=== PATIENT | female | born 1955 | race Caucasian/White ===

== ENCOUNTER 2024-02-19 19:36 | Emergency (ER) | payer MEDICARE, SELFPAY ==
[2024-02-19 19:35] VITALS: PULSE 125; RESP 26; TEMP 37.1; O2SAT 96
[2024-02-19] MEDS: LORazepam 2 MG/ML INJ IM (19:51)
[2024-02-19] MEDS: HALOPERIDOL 5 MG/ML VIAL IM (19:51)
--- NOTE | 2024-02-19 20:15 | ED_ITS ---
HPI - Psych <Anders Kauffman DO - Last Filed: 02/20/24 18:03> General Chief Complaint: Psychiatric Symptoms Stated Complaint: manic Time Seen by Provider: 02/19/24 19:43 Source: EMS and other Mode of arrival: EMS Limitations: other (Manic) History of Present Illness HPI Narrative: Patient is a 68-year-old female. She was unable to provide any HPI for review of systems. EMS was called after the patient showed up to a friend's house. The friend was in the one who contacted 911. Is reported by EMS that they were told by the patient's friend that she showed up to his house in a manic state. Supported that she has a history of bipolar. Potentially has been off of her medicines for some time. Patient came to the emergency department with EMS on her own. Upon arrival the patient does appear to be suspicious. She was hyperverbal. Is tangential. Is not making any sense. Would not directly answer any questions. Related Data Allergies Allergy/AdvReac Type Severity Reaction Status Date / Time codeine AdvReac Vomiting Verified 02/19/24 20:16 morphine AdvReac Vomiting Verified 02/19/24 20:16 Review of Systems <Anders Kauffman DO - Last Filed: 02/20/24 18:03> Review of Systems ROS Unobtainable: Unobtainable due to mental condition Exam <Anders Kauffman DO - Last Filed: 02/20/24 18:03> Initial Vital Signs Initial Vital Signs: Vital Signs Temperature 98.7 F 02/19/24 19:35 Pulse Rate 125 H 02/19/24 19:35 Respiratory Rate 26 H 02/19/24 19:35 Pulse Oximetry 96 02/19/24 19:35 Oxygen Delivery Method Room Air 02/19/24 19:35 Const General: disheveled HENMT Head: normal to inspection and normocephalic Resp Effort & Inspection: normal respiratory effort Cardio Rate: regular rate Extrem Other: No gross deformities Psych Other: Patient is obviously responding to internal stimuli. Hyperverbal, is very animated. Has not been aggressive. Appears to be paranoid/anxious. <Michelle Daily, DO - Last Filed: 02/21/24 07:29> Initial Vital Signs Initial Vital Signs: Vital Signs Temperature 98.7 F 02/19/24 19:35 Pulse Rate 125 H 02/19/24 19:35 Respiratory Rate 26 H 02/19/24 19:35 Pulse Oximetry 96 02/19/24 19:35 Oxygen Delivery Method Room Air 02/19/24 19:35 Course <Anders Kauffman DO - Last Filed: 02/20/24 18:03> Orders Ordered: Discontinued Medications Famotidine (Famotidine 20 Mg Tablet) 20 mg PO NOW ONE Stop: 02/20/24 07:38 Last Admin: 02/20/24 08:00 Dose: 20 mg Documented By: TJ Haloperidol (Haloperidol 5 Mg/Ml Vial) 5 mg IM NOW ONE Stop: 02/19/24 19:44 Last Admin: 02/19/24 19:51 Dose: 5 mg Documented By: KENNY Lorazepam (Lorazepam 2 Mg/Ml Inj) 2 mg IM NOW ONE Stop: 02/19/24 19:44 Last Admin: 02/19/24 19:51 Dose: 2 mg Documented By: KENNY Olanzapine (Olanzapine Odt 10 Mg Tab) 10 mg PO NOW ONE Stop: 02/19/24 19:38 Last Admin: 02/19/24 20:21 Dose: Not Given Documented By: KENNY Olanzapine (Olanzapine Odt 10 Mg Tab) 10 mg PO NOW ONE Stop: 02/20/24 11:31 Last Admin: 02/20/24 16:09 Dose: Not Given Documented By: ALVARO Vital Signs Vital signs: Vital Signs - 8 hr 02/20/24 11:30 02/20/24 13:30 02/20/24 15:25 Temperature 98.8 F 99.2 F 97.7 F Pulse Rate 88 91 H 89 Respiratory Rate 18 18 18 Blood Pressure 131/64 148/79 H 120/57 L Pulse Oximetry 96 97 96 Oxygen Delivery Method Room Air Room Air Room Air <Michelle Daily DO - Last Filed: 02/21/24 07:29> Orders Ordered: Discontinued Medications Famotidine (Famotidine 20 Mg Tablet) 20 mg PO NOW ONE Stop: 02/20/24 07:38 Last Admin: 02/20/24 08:00 Dose: 20 mg Documented By: TJ Haloperidol (Haloperidol 5 Mg/Ml Vial) 5 mg IM NOW ONE Stop: 02/19/24 19:44 Last Admin: 02/19/24 19:51 Dose: 5 mg Documented By: KENNY Lorazepam (Lorazepam 2 Mg/Ml Inj) 2 mg IM NOW ONE Stop: 02/19/24 19:44 Last Admin: 02/19/24 19:51 Dose: 2 mg Documented By: KENNY Olanzapine (Olanzapine Odt 10 Mg Tab) 10 mg PO NOW ONE Stop: 02/19/24 19:38 Last Admin: 02/19/24 20:21 Dose: Not Given Documented By: HNG Olanzapine (Olanzapine Odt 10 Mg Tab) 10 mg PO NOW ONE Stop: 02/20/24 11:31 Last Admin: 02/20/24 16:09 Dose: Not Given Documented By: ALVARO Vital Signs Vital signs: Vital Signs - 8 hr 02/20/24 11:30 02/20/24 13:30 02/20/24 15:25 Temperature 98.8 F 99.2 F 97.7 F Pulse Rate 88 91 H 89 Respiratory Rate 18 18 18 Blood Pressure 131/64 148/79 H 120/57 L Pulse Oximetry 96 97 96 Oxygen Delivery Method Room Air Room Air Room Air MDM - Psych <Anders Kauffman DO - Last Filed: 02/20/24 18:03> Medical Records Attestation: I reviewed the patient's medical records. Lab Data Attestation: I reviewed the patient's lab results. 02/19/24 21:25 02/19/24 21:25 Labs: Lab Results 02/19/24 02/19/24 02/19/24 Range/Units 20:37 20:37 20:55 WBC (4.5-11.0) X10^3/uL RBC (4.0-5.2) X10^6/uL Hgb (12.0-16.0) g/dL Hct (36-46) % MCV (80-100) fL MCH (26-34) PG MCHC (30-36) % RDW (11.6-14.8) % Plt Count (150-400) X10^3/uL Neut % (Auto) (50-75) % Lymph % (Auto) (25-40) % [place] % (Auto) (3-14) % Eos % (Auto) (2-4) % Baso % (Auto) (0-2) % Neut # (Auto) (0298-6233) /uL Lymph # (Auto) (4404-5865) /uL [place] # (Auto) (0-900) /uL Eos # (Auto) (0-450) /uL Baso # (Auto) (0-100) /uL Sodium (137-145) mmol/L Potassium (3.4-5.1) mmol/L Chloride (98-107) mmol/L Carbon Dioxide (22-32) mmol/L BUN (7-17) mg/dL Creatinine (0.52-1.04) mg/dL Estimated GFR (>60) mL/min BUN/Creatinine Ratio (6-22) Glucose (80-110) mg/dL Calcium (8.4-10.2) mg/dL Magnesium (1.6-2.3) mg/dL Total Bilirubin (0.2-1.3) mg/dL AST (14-36) IU/L ALT (<35) IU/L Alkaline Phosphatase (38-126) U/L Total Creatine Kinase (30-135) U/L Troponin I (0.01-0.034) ng/mL Total Protein (6.3-8.2) g/dL Albumin (3.5-5.0) g/dL Globulin (1.7-4.1) g/dL Albumin/Globulin Ratio (1.0-2.8) Lipase (23-300) U/L TSH (0.47-4.68) uIU/mL Urine Color Yellow Urine Appearance Clear Urine pH 5.5 Normal (4.5-8.0) Ur Specific [place] 1.020 (1.000-1.035) Urine Protein 1+ H (Negative) Urine Glucose (UA) Negative (Negative) g/dL Urine Ketones Trace H (NEGATIVE) Urine Occult Blood 2+ H (Negative) Urine Nitrate Negative (Negative) Urine Bilirubin 1+ H (NEGATIVE) Ur Bilirubin Confirm Negative (Negative) Urine Urobilinogen 1.0 (0.2) E.U./dL Ur Leukocyte Esterase Negative (NEGATIVE) Urine RBC 1-5/hpf (0-5/HPF) Urine WBC 0-1/hpf (0-5/HPF) Ur Squamous Epith Cells 1-5 /hpf (0-5/HPF) Amorphous Sediment 1+ Urine Bacteria Few (2-10) H (None) Hyaline Casts 1-5/lpf (None) Ur Culture Indicated? Cult not indicated Vol Urine Centrifuged 10ml (spun) Salicylates (<20) mg/dL U Opiates 300ng/mL cut Negative (Negative) Ur Oxycodone Screen Negative (Negative) Urine Methadone Screen Negative (Negative) Acetaminophen (10-30) ug/mL Ur Barbiturates Screen Negative (Negative) U Tricyclic Antidepress Negative (Negative) Ur Phencyclidine Scrn Negative (Negative) Ur Amphetamines Screen Negative (Negative) U Methamphetamines Scrn Negative (Negative) Ur MDMA Scrn (Ecstasy) Negative (Negative) U Benzodiazepines Scrn Positive H (Negative) Urine Cocaine Screen Negative (Negative) U Marijuana (THC) Screen Negative (Negative) Urine Specific [place] Normal (Normal) Ethyl Alcohol ( - 10) mg/dL Ur Creatinine Normal (Normal) SARS-CoV-2 (PCR) Negative (Negative) Influenza A (RT-PCR) Flu a negative (NEGATIVE) Influenza B (RT-PCR) Flu b negative (NEGATIVE) RSV (PCR) Negative (Negative) 02/19/24 Range/Units 21:25 WBC 8.5 (4.5-11.0) X10^3/uL RBC 4.00 (4.0-5.2) X10^6/uL Hgb 12.7 (12.0-16.0) g/dL Hct 37.1 (36-46) % MCV 92.7 (80-100) fL MCH 31.8 (26-34) PG MCHC 34.3 (30-36) % RDW 13.3 (11.6-14.8) % Plt Count 235 (150-400) X10^3/uL Neut % (Auto) 61.3 (50-75) % Lymph % (Auto) 30.5 (25-40) % [place] % (Auto) 7.5 (3-14) % Eos % (Auto) 0.3 L (2-4) % Baso % (Auto) 0.4 (0-2) % Neut # (Auto) 5200 (9961-3074) /uL Lymph # (Auto) 2600 (8105-9650) /uL [place] # (Auto) 600 (0-900) /uL Eos # (Auto) 0 (0-450) /uL Baso # (Auto) 0 (0-100) /uL Sodium 138 (137-145) mmol/L Potassium 3.3 L (3.4-5.1) mmol/L Chloride 105 (98-107) mmol/L Carbon Dioxide 22 (22-32) mmol/L BUN 22 H (7-17) mg/dL Creatinine 1.03 (0.52-1.04) mg/dL Estimated GFR 59 L (>60) mL/min BUN/Creatinine Ratio 21.4 (6-22) Glucose 119 H (80-110) mg/dL Calcium 9.1 (8.4-10.2) mg/dL Magnesium 2.4 H (1.6-2.3) mg/dL Total Bilirubin 0.8 (0.2-1.3) mg/dL AST 29 (14-36) IU/L ALT 21 (<35) IU/L Alkaline Phosphatase 55 (38-126) U/L Total Creatine Kinase 181 H (30-135) U/L Troponin I 0.013 (0.01-0.034) ng/mL Total Protein 6.8 (6.3-8.2) g/dL Albumin 4.0 (3.5-5.0) g/dL Globulin 2.8 (1.7-4.1) g/dL Albumin/Globulin Ratio 1.4 (1.0-2.8) Lipase 105 (23-300) U/L TSH 0.754 (0.47-4.68) uIU/mL Urine Color Urine Appearance Urine pH (4.5-8.0) Ur Specific [place] (1.000-1.035) Urine Protein (Negative) Urine Glucose (UA) (Negative) g/dL Urine Ketones (NEGATIVE) Urine Occult Blood (Negative) Urine Nitrate (Negative) Urine Bilirubin (NEGATIVE) Ur Bilirubin Confirm (Negative) Urine Urobilinogen (0.2) E.U./dL Ur Leukocyte Esterase (NEGATIVE) Urine RBC (0-5/HPF) Urine WBC (0-5/HPF) Ur Squamous Epith Cells (0-5/HPF) Amorphous Sediment Urine Bacteria (None) Hyaline Casts (None) Ur Culture Indicated? Vol Urine Centrifuged Salicylates < 1.0 (<20) mg/dL U Opiates 300ng/mL cut (Negative) Ur Oxycodone Screen (Negative) Urine Methadone Screen (Negative) Acetaminophen < 10 (10-30) ug/mL Ur Barbiturates Screen (Negative) U Tricyclic Antidepress (Negative) Ur Phencyclidine Scrn (Negative) Ur Amphetamines Screen (Negative) U Methamphetamines Scrn (Negative) Ur MDMA Scrn (Ecstasy) (Negative) U Benzodiazepines Scrn (Negative) Urine Cocaine Screen (Negative) U Marijuana (THC) Screen (Negative) Urine Specific [place] (Normal) Ethyl Alcohol < 10 ( - 10) mg/dL Ur Creatinine (Normal) SARS-CoV-2 (PCR) (Negative) Influenza A (RT-PCR) (NEGATIVE) Influenza B (RT-PCR) (NEGATIVE) RSV (PCR) (Negative) MDM Narrative Medical decision making narrative: In order to treat the patient's obvious paranoia/anxiety she was given an IM dose of Haldol and Ativan. After a short period of time patient became much less animated. She did sleep on her own. Labs are relatively unremarkable. She was positive for benzodiazepine. Her urine sample was given after she was given a dose of Ativan here in the emergency department. I was able to obtain records from [facility]. She was seen on August 03, 2023 at [facility]. According to that note she has a history of hypertension/hyperlipidemia/depression, anxiety, PTSD and psychosis. That that time she was presented by law enforcement under 90 a for what appears to be very similar symptoms that she presents with today. She was evaluated by the DCR and from what I can gather from the note was in voluntarily admitted for grave disability. Plan will be is to observe the patient here in the emergency department until she wakes in the morning for re-evaluation to see if her psychosis has improved. 0600 Dr kauffman: Patient has been sleeping overnight. This morning waking up patient is definitely not as agitated/excited as she was last evening however is still experiencing yaa. I do not feel that the patient has capacity to make decisions. I do feel patient he was gravely disabled. We will make contact with DCR to evaluate <Michelle Daily, DO - Last Filed: 02/21/24 07:29> Lab Data Labs: Lab Results 02/19/24 02/19/24 02/19/24 Range/Units 20:37 20:37 20:55 WBC (4.5-11.0) X10^3/uL RBC (4.0-5.2) X10^6/uL Hgb (12.0-16.0) g/dL Hct (36-46) % MCV (80-100) fL MCH (26-34) PG MCHC (30-36) % RDW (11.6-14.8) % Plt Count (150-400) X10^3/uL Neut % (Auto) (50-75) % Lymph % (Auto) (25-40) % [place] % (Auto) (3-14) % Eos % (Auto) (2-4) % Baso % (Auto) (0-2) % Neut # (Auto) (2619-5660) /uL Lymph # (Auto) (6942-5836) /uL [place] # (Auto) (0-900) /uL Eos # (Auto) (0-450) /uL Baso # (Auto) (0-100) /uL Sodium (137-145) mmol/L Potassium (3.4-5.1) mmol/L Chloride (98-107) mmol/L Carbon Dioxide (22-32) mmol/L BUN (7-17) mg/dL Creatinine (0.52-1.04) mg/dL Estimated GFR (>60) mL/min BUN/Creatinine Ratio (6-22) Glucose (80-110) mg/dL Calcium (8.4-10.2) mg/dL Magnesium (1.6-2.3) mg/dL Total Bilirubin (0.2-1.3) mg/dL AST (14-36) IU/L ALT (<35) IU/L Alkaline Phosphatase (38-126) U/L Total Creatine Kinase (30-135) U/L Troponin I (0.01-0.034) ng/mL Total Protein (6.3-8.2) g/dL Albumin (3.5-5.0) g/dL Globulin (1.7-4.1) g/dL Albumin/Globulin Ratio (1.0-2.8) Lipase (23-300) U/L TSH (0.47-4.68) uIU/mL Urine Color Yellow Urine Appearance Clear Urine pH 5.5 Normal (4.5-8.0) Ur Specific [place] 1.020 (1.000-1.035) Urine Protein 1+ H (Negative) Urine Glucose (UA) Negative (Negative) g/dL Urine Ketones Trace H (NEGATIVE) Urine Occult Blood 2+ H (Negative) Urine Nitrate Negative (Negative) Urine Bilirubin 1+ H (NEGATIVE) Ur Bilirubin Confirm Negative (Negative) Urine Urobilinogen 1.0 (0.2) E.U./dL Ur Leukocyte Esterase Negative (NEGATIVE) Urine RBC 1-5/hpf (0-5/HPF) Urine WBC 0-1/hpf (0-5/HPF) Ur Squamous Epith Cells 1-5 /hpf (0-5/HPF) Amorphous Sediment 1+ Urine Bacteria Few (2-10) H (None) Hyaline Casts 1-5/lpf (None) Ur Culture Indicated? Cult not indicated Vol Urine Centrifuged 10ml (spun) Salicylates (<20) mg/dL U Opiates 300ng/mL cut Negative (Negative) Ur Oxycodone Screen Negative (Negative) Urine Methadone Screen Negative (Negative) Acetaminophen (10-30) ug/mL Ur Barbiturates Screen Negative (Negative) U Tricyclic Antidepress Negative (Negative) Ur Phencyclidine Scrn Negative (Negative) Ur Amphetamines Screen Negative (Negative) U Methamphetamines Scrn Negative (Negative) Ur MDMA Scrn (Ecstasy) Negative (Negative) U Benzodiazepines Scrn Positive H (Negative) Urine Cocaine Screen Negative (Negative) U Marijuana (THC) Screen Negative (Negative) Urine Specific [place] Normal (Normal) Ethyl Alcohol ( - 10) mg/dL Ur Creatinine Normal (Normal) SARS-CoV-2 (PCR) Negative (Negative) Influenza A (RT-PCR) Flu a negative (NEGATIVE) Influenza B (RT-PCR) Flu b negative (NEGATIVE) RSV (PCR) Negative (Negative) 02/19/24 Range/Units 21:25 WBC 8.5 (4.5-11.0) X10^3/uL RBC 4.00 (4.0-5.2) X10^6/uL Hgb 12.7 (12.0-16.0) g/dL Hct 37.1 (36-46) % MCV 92.7 (80-100) fL MCH 31.8 (26-34) PG MCHC 34.3 (30-36) % RDW 13.3 (11.6-14.8) % Plt Count 235 (150-400) X10^3/uL Neut % (Auto) 61.3 (50-75) % Lymph % (Auto) 30.5 (25-40) % [place] % (Auto) 7.5 (3-14) % Eos % (Auto) 0.3 L (2-4) % Baso % (Auto) 0.4 (0-2) % Neut # (Auto) 5200 (1188-1979) /uL Lymph # (Auto) 2600 (1246-5656) /uL [place] # (Auto) 600 (0-900) /uL Eos # (Auto) 0 (0-450) /uL Baso # (Auto) 0 (0-100) /uL Sodium 138 (137-145) mmol/L Potassium 3.3 L (3.4-5.1) mmol/L Chloride 105 (98-107) mmol/L Carbon Dioxide 22 (22-32) mmol/L BUN 22 H (7-17) mg/dL Creatinine 1.03 (0.52-1.04) mg/dL Estimated GFR 59 L (>60) mL/min BUN/Creatinine Ratio 21.4 (6-22) Glucose 119 H (80-110) mg/dL Calcium 9.1 (8.4-10.2) mg/dL Magnesium 2.4 H (1.6-2.3) mg/dL Total Bilirubin 0.8 (0.2-1.3) mg/dL AST 29 (14-36) IU/L ALT 21 (<35) IU/L Alkaline Phosphatase 55 (38-126) U/L Total Creatine Kinase 181 H (30-135) U/L Troponin I 0.013 (0.01-0.034) ng/mL Total Protein 6.8 (6.3-8.2) g/dL Albumin 4.0 (3.5-5.0) g/dL Globulin 2.8 (1.7-4.1) g/dL Albumin/Globulin Ratio 1.4 (1.0-2.8) Lipase 105 (23-300) U/L TSH 0.754 (0.47-4.68) uIU/mL Urine Color Urine Appearance Urine pH (4.5-8.0) Ur Specific [place] (1.000-1.035) Urine Protein (Negative) Urine Glucose (UA) (Negative) g/dL Urine Ketones (NEGATIVE) Urine Occult Blood (Negative) Urine Nitrate (Negative) Urine Bilirubin (NEGATIVE) Ur Bilirubin Confirm (Negative) Urine Urobilinogen (0.2) E.U./dL Ur Leukocyte Esterase (NEGATIVE) Urine RBC (0-5/HPF) Urine WBC (0-5/HPF) Ur Squamous Epith Cells (0-5/HPF) Amorphous Sediment Urine Bacteria (None) Hyaline Casts (None) Ur Culture Indicated? Vol Urine Centrifuged Salicylates < 1.0 (<20) mg/dL U Opiates 300ng/mL cut (Negative) Ur Oxycodone Screen (Negative) Urine Methadone Screen (Negative) Acetaminophen < 10 (10-30) ug/mL Ur Barbiturates Screen (Negative) U Tricyclic Antidepress (Negative) Ur Phencyclidine Scrn (Negative) Ur Amphetamines Screen (Negative) U Methamphetamines Scrn (Negative) Ur MDMA Scrn (Ecstasy) (Negative) U Benzodiazepines Scrn (Negative) Urine Cocaine Screen (Negative) U Marijuana (THC) Screen (Negative) Urine Specific [place] (Normal) Ethyl Alcohol < 10 ( - 10) mg/dL Ur Creatinine (Normal) SARS-CoV-2 (PCR) (Negative) Influenza A (RT-PCR) (NEGATIVE) Influenza B (RT-PCR) (NEGATIVE) RSV (PCR) (Negative) MDM Narrative Medical decision making narrative: In order to treat the patient's obvious paranoia/anxiety she was given an IM dose of Haldol and Ativan. After a short period of time patient became much less animated. She did sleep on her own. Labs are relatively unremarkable. She was positive for benzodiazepine. Her urine sample was given after she was given a dose of Ativan here in the emergency department. I was able to obtain records from [facility]. She was seen on August 03, 2023 at [facility]. According to that note she has a history of hypertension/hyperlipidemia/depression, anxiety, PTSD and psychosis. That that time she was presented by law enforcement under 90 a for what appears to be very similar symptoms that she presents with today. She was evaluated by the DCR and from what I can gather from the note was in voluntarily admitted for grave disability. Plan will be is to observe the patient here in the emergency department until she wakes in the morning for re-evaluation to see if her psychosis has improved. 0600 Dr kauffman: Patient has been sleeping overnight. This morning waking up patient is definitely not as agitated/excited as she was last evening however is still experiencing yaa. I do not feel that the patient has capacity to make decisions. I do feel patient he was gravely disabled. We will make contact with DCR to evaluate [id number] Daily-patient seen evaluated by myself. She received Haldol and Ativan last night. She reports that she is feeling much more ?stable.I asked her how she got here last night she reports that she has been working [employer] for the last 39 years. She is very tangential in her communication. She reports she is noncompliant with her medication accepts for famotidine. She is extremely poor insight DCR at bedside she actually detained patient. They did require an EKG which does not show any sort of ischemia or prolonged QT or arrhythmia. Patient actually took the news of detainment and going to [facility] quite well she apparently remembers that place and has found memory Discharge Plan Departure Patient Disposition: Xfer Psychiatric Hosp Clinical Impression: Yaa
--- NOTE | 2024-02-19 20:17 | EKG_ITS ---
[address] [address] Test Date: 2024-02-20 Pat Name: Koki Isaacs Department: [facility] Room: Gender: Female Enterprise Sales Person: AMARIS : 1955 Requested By: Order Number: [id number] Reading MD: Piotr Celestin Measurements Intervals [place] Rate: 89 P: 17 NC: 136 QRS: 15 QRSD: 78 T: 23 QT: 384 QTc: 467 Interpretive Statements Normal sinus rhythm Electronically Signed On 02-24-2024 9:14:58 PDT by Piotr Celestin
--- NOTE | 2024-02-19 20:47 | PC.NURSE ---
Pt came in via EMS, she is manic and unable to concentrate on task in front. Continues to be manic and thought process is not understandable. However, she does known her name, and where she is, but other than that she continues to speak in past terms as if they are present.
[2024-02-19 20:52] LABS: Appearance Urine UA CLEAR; Bilirubin Urine UA 1+ (NEGATIVE); Color Urine UA YELLOW; Glucose Urine UA NEGATIVE (Negative); Ketones Urine UA TRACE (NEGATIVE); Leukocyte Esterase Urine UA NEGATIVE (NEGATIVE); Nitrite Urine UA NEGATIVE (Negative); Occult Blood Urine UA 2+ (Negative); Protein Urine UA 1+ (Negative)
[2024-02-19 20:53] LABS: pH Urine UA 5.5 (4.5-8.0)
[2024-02-19 20:56] LABS: UR Morphine/Opiate cutoff 300 Negative (Negative); Ur Creatinine Normal (Normal); Ur Specific Gravity Normal (Normal); Urine Amphetamines Negative (Negative); Urine Barbiturates Negative (Negative); Urine Benzodiazepines Positive (Negative); Urine Cocaine Negative (Negative); Urine MDMA Negative (Negative); Urine Methadone Negative (Negative); Urine Methamphetamines Negative (Negative); Urine Oxycodone Negative (Negative); Urine Phencyclidine Negative (Negative); Urine Tetrahydrocannabinol Negative (Negative); Urine Tricyclic Antidepressant Negative (Negative); Urine pH Normal (Normal)
[2024-02-19 21:02] VITALS: BP 109/54
[2024-02-19 21:06] LABS: Ictotest Urine Negative (Negative); Urine Volume 10mL (spun)
[2024-02-19 21:07] LABS: Amorphous Sediment Urine 1+; Bacteria Urine Few (2-10); Culture Indicated Urine Cult Not Indicated; Hyaline Casts Urine 1-5/LPF; RBC Urine 1-5/HPF (0-5/HPF); Squamous Epithelial Cell Urine 1-5 /HPF (0-5/HPF); WBC Urine 0-1/HPF (0-5/HPF)
[2024-02-19 21:36] LABS: Add Manual Diff / Slide Review NO; Basophils Absolute Auto 0 /uL (0-100); Basophils Percent Auto 0.4 % (0-2); Eosinophils Absolute Auto 0 /uL (0-450); Eosinophils Percent Auto 0.3 % (2-4); Hematocrit 37.1 % (36-46); Hemoglobin 12.7 g/dL (12.0-16.0); Lymphocytes Absolute Auto 2600 /uL (1100-4500); Lymphocytes Percent Auto 30.5 % (25-40); Mean Corpuscular HGB Conc 34.3 % (30-36); Mean Corpuscular Hemoglobin 31.8 PG (26-34); Mean Corpuscular Volume 92.7 fL (80-100); Monocytes Absolute Auto 600 /uL (0-900); Monocytes Percent Auto 7.5 % (3-14); Neutrophils Absolute Auto 5200 /uL (1500-7000); Neutrophils Percent Auto 61.3 % (50-75); Platelet Count 235 X10^3/uL (150-400); Red Cell Distribution Width 13.3 % (11.6-14.8); White Blood Cell Count 8.5 X10^3/uL (4.5-11.0)
[2024-02-19 21:49] LABS: Acetaminophen < 10 ug/mL (10-30); Alanine Aminotransferase 21 IU/L (<35); Albumin Globulin Ratio 1.4 (1.0-2.8); Alkaline Phosphatase 55 U/L (38-126); Aspartate Aminotransferase 29 IU/L (14-36); BUN Creatinine Ratio 21.4 (6-22); Bilirubin Total 0.8 mg/dL (0.2-1.3); Blood Urea Nitrogen 22 mg/dL (7-17); Calcium 9.1 mg/dL (8.4-10.2); Carbon Dioxide 22 mmol/L (22-32); Chloride 105 mmol/L (98-107); Creatine Kinase 181 U/L (30-135); Estimated Glomerular Filt Rate 59 mL/min (>60); Ethanol (ETOH) < 10 mg/dL; Globulin 2.8 g/dL (1.7-4.1); Glucose 119 mg/dL (80-110); HEMOLYSIS < 15 (0-50); Lipase 105 U/L (23-300); Magnesium 2.4 mg/dL (1.6-2.3); Potassium 3.3 mmol/L (3.4-5.1); Salicylate < 1.0 mg/dL (<20); Sodium 138 mmol/L (137-145); Total Protein 6.8 g/dL (6.3-8.2)
[2024-02-19 22:01] LABS: Troponin I 0.013 ng/mL (0.01-0.034)
[2024-02-19 22:21] LABS: Thyroid Stimulating Hormone 0.754 uIU/mL (0.47-4.68)
[2024-02-19 23:36] LABS: COVID-19 CEPHEID 4-PLEX PCR Negative (Negative); Influenza A - CEPHEID Flu A NEGATIVE (NEGATIVE); Influenza B - CEPHEID Flu B NEGATIVE (NEGATIVE); Respiratory Syncytial Virus Negative (Negative)
[2024-02-20 01:18] VITALS: BP 107/59; PULSE 72; RESP 16; TEMP 36.5; O2SAT 94
--- NOTE | 2024-02-20 03:31 | PC.NURSE ---
Addendum entered by Evelia Romero CNA 02/20/24 06:30: MARTINEZ note: Patient asked if she could wash her face. Got patient a wet washcloth with warm water, patient washed her face and then laid back down. I asked her if she wanted her lights turned off. Patient replied with that would be nice. Patient requests another cup of coffee. Original Note: ROLLER INSPECTOR note: Patient woke up asking about water and a snack. Got patient a cup of ice water and a granola bar. Patient asked when is breakfast served. I said at about 0800. Patient asked what time it is, 0330. Patient stated she was going to go back to sleep. Patient took 2 bites of granola bar and now has her eyes closed in bed.
--- NOTE | 2024-02-20 04:15 | PC.NURSE ---
Pt has woken up intermittently for snacks, and water.
--- NOTE | 2024-02-20 07:09 | PC.NURSE ---
TELEVISION REPAIRMAN: patient requested a hairbrush and chapstick, I checked with patients gizzard skin remover nurse to see if she thinks that would be okay to provide. The items were given to the patient.
--- NOTE | 2024-02-20 07:30 | PC.NURSE ---
BULLET ASSEMBLY PRESS OPERATOR Note: patient requested two cups of coffee to help her have a bowel movement this morning. Coffee was provided and bathroom is unlocked for patient to use at her discretion.
--- NOTE | 2024-02-20 07:40 | PC.NURSE ---
Guillermina LANDA called requesting information on patient. Fax sent. At request of DCR patient asked if agreeable to voluntary hospitalization for mental health. No i am not worried about my mental health, I am worried about my physical health. I am just here to cool off DCR reviewing chart
[2024-02-20] MEDS: FAMOTIDINE 20 MG TABLET PO (08:00)
[2024-02-20 08:07] VITALS: BP 144/75; PULSE 93; RESP 18; TEMP 37.1; O2SAT 95
--- NOTE | 2024-02-20 10:04 | PC.NURSE ---
[employer] PRINCIPAL note: Patient asked me to step into room to tell me something personal. The patient stated that her unofficial is Noah Ayon and that he is her civil litigation attorney to protect her and all the other vulnerable adults in [facility] from medicare. Patient asked if I could call him and tell him that Koki is here. I told the patient that I do not have his phone number and she was unable to provide a number for me to call. Patient stated I feel better just with you knowing that he is my . Patient started to speak in unorganized sentences and walked away mid conversation to the bathroom.
--- NOTE | 2024-02-20 10:45 | PC.NURSE ---
DCR in room with patient
[2024-02-20 11:30] VITALS: BP 131/64; PULSE 88; RESP 18; TEMP 37.1; O2SAT 96
--- NOTE | 2024-02-20 11:32 | PC.NURSE ---
The patient was given the news by DCR that she was going to be going to a facility to get treatment and the patient was displaying a positive attitude towards the news. She reacted by giving the DCR a hug and thanking her.
[2024-02-20 13:30] VITALS: BP 148/79; PULSE 91; RESP 18; TEMP 37.3; O2SAT 97
--- NOTE | 2024-02-20 13:36 | CM.SWNOTE ---
ED EXEC. CREATIVE DIRECTOR Note Guillermina LANDA evaluates patient and determines detainment due to concern for grave disability. Patient was accepted at [facility] for [facility]DA placement. Legal documentation received via fax and served to patient. Patient endorses that she agrees with decision to go to [facility]. [facility] set up for transport for [id number]. Plan: patient to transfer to [facility] for ROSENDA placement this afternoon. Lucy Pickett, MEDICAL SCIENTIFIC OFFICER
--- NOTE | 2024-02-20 14:15 | PC.NURSE ---
GALLERY OR MUSEUM GUIDE Note: Unit cell phone was provided so she could call her friend Reddy to ease her worry about the care of her dog while she receives treatment. Phone was given back after call was complete and seemed to cheer up patients mood.
[2024-02-20 15:25] VITALS: BP 120/57; PULSE 89; RESP 18; TEMP 36.5; O2SAT 96
--- NOTE | 2024-02-20 16:01 | PC.NURSE ---
BOOKING POLICE OFFICER Note: [facility] picked patient up
== END 2024-02-20 16:09 ==
PROVIDERS: Emergency Medicine; Emergency Provider Emergency Medicine
DX: F30.9 Manic episode, unspecified (principal); R07.9 Chest pain, unspecified; Z11.52 Encounter for screening for COVID-19
CPT/HCPCS: 0241U; 36415; 80053; 80305; 80320; 80329; 81001; 82550; 83690; 83735; 84443; 84484; 85025; 93005; 96372; 99284; 99285; A9270; G0480; J1630; J2060